=== PATIENT | male | born 1995 | race Caucasian/White ===

== ENCOUNTER 2022-05-05 10:25 | Emergency (ER) | payer OTHER ==
[~2022-05-05] VITALS: Ht 180.3 cm; Wt 84.5 kg
[2022-05-05 10:45] VITALS: BP 119/73; PULSE 60; TEMP 98.2
== END 2022-05-05 12:48 | disposition home or self-care (01) ==
LOC: COL.ER 10:25
DX: S90.32XA Contusion of left foot, initial encounter (principal); W20.8XXA Other cause of strike by thrown, projected or falling object, initial encounter